=== PATIENT | female | born 1980 | race Caucasian/White ===

== ENCOUNTER 2018-10-05 12:06 | Day surgery (SDC) | payer BC ==
[2018-10-05] MEDS ORDERED: PROPOFOL 20 ML (14:37)
== END 2018-10-05 17:07 | disposition home or self-care (01) ==
LOC: GIL 12:06
DX: K21.0 Gastro-esophageal reflux disease with esophagitis (principal); K29.00 Acute gastritis without bleeding
CPT/HCPCS: 43239; 84703; 88305; 88312